=== PATIENT | female | born 1935 | race Asian ===

== ENCOUNTER 2018-11-24 04:29 | Emergency (ER) | payer MEDICARE, OTHER ==
[~2018-11-24] VITALS: Ht 154.9 cm; Wt 57.2 kg
--- NOTE | 2018-11-24 04:54 | PHYS DOC ---
Past History Past Medical History: Other Additional Past Medical Histor: gastic ulcer Past Surgical History: Appendectomy Smoking: Non-smoker Alcohol Use: None Drug Use: None Adult General HPI HPI Patient is a 83-year-old female presents with lower abdominal pain that started yesterday morning. Yesterday evening she noticed some bright red blood from her rectum. This has become worse over time. Describes the discomfort as crampy and twisting. Discomfort is moderate in intensity. No nausea or vomiting. No black tarry-looking stools. No skin bruising. No recent changes in medicines. She has been on any antiulcer medicine, long-standing, as well as an aspirin a day. She has taken no medicine help with the abdominal pain. She has a remote history of an appendectomy.[] Review of Systems Review of Systems Constitutional: Denies fever or chills [] Eyes: Denies change in visual acuity, redness, or eye pain [] HENT: Denies nasal congestion or sore throat [] Respiratory: Denies cough or shortness of breath [] Cardiovascular: No chest pain or palpitations[] GI: See history of present illness[] : Denies dysuria or hematuria [] Musculoskeletal: Denies back pain or joint pain [] Integument: Denies rash or skin lesions [] Neurologic: Denies headache, focal weakness or sensory changes [] Endocrine: Denies polyuria or polydipsia [] All other systems were reviewed and found to be within normal limits, except as documented in this note. Physical Exam Physical Exam Constitutional: Well developed, well nourished, no acute distress, non-toxic appearance. [] HENT: Normocephalic, atraumatic, bilateral external ears normal, oropharynx moist, no oral exudates, nose normal. [] Eyes: PERRLA, EOMI, conjunctiva normal, no discharge. [] Neck: Normal range of motion, no tenderness, supple, no stridor. [] Cardiovascular:Heart rate regular rhythm, no murmur [] Lungs & Thorax: Bilateral breath sounds clear to auscultation [] Abdomen: Bowel sounds normal, soft, lower abdominal tenderness, no rebound, no guarding, no rigidity, no masses, no pulsatile masses. Rectal exam performed with siding mechanic: No external hemorrhoids, no fissures, no gross blood on finger, no stool in the vault[] Skin: Warm, dry, no erythema, no rash. [] Back: No tenderness, no CVA tenderness. [] Extremities: No tenderness, no cyanosis, no clubbing, ROM intact, no edema. [] Neurologic: Alert and oriented X 3, normal motor function, normal sensory function, no focal deficits noted. [] Psychologic: Affect normal, judgement normal, mood normal. [] EKG EKG [] Radiology/Procedures Radiology/Procedures [] Course & Med Decision Making Course & Med Decision Making Pertinent Labs and Imaging studies reviewed. (See chart for details) ED course: Patient arrived, was placed in bed, and tolerated exam well. After rectal exam as noted above in the physical exam section, patient had a bowel movement that was mostly blood, collected and the hat, it had components or both bright red as well as what appeared to be clot. Discussion was made with the hospitalist here at [facility], due to not having a GI specialist or surgical capabilities, it was deemed not appropriate to admit the patient here at [facility] so consultation was made with the hospitalist service at [facility] The patient was graciously accepted by Dr. Odonnell. Patient care was endorsed to Dr. Carlin at 6 AM with imaging and laboratory studies pending.[] Dragon Disclaimer Dragon Disclaimer This electronic medical record was generated, in whole or in part, using a voice recognition dictation system. Departure Departure: Impression: Primary Impression: GI bleed Disposition: 05 TRANSFER OTHER Referrals: CED GRIFFIN MD (PCP) JORGE A MURRAY DO Nov 24, 2018 04:54
[2018-11-24] MEDS ORDERED: MORPHINE SULFATE 4 MG/ML DISP.SYRIN. IV ONE (05:15)
[2018-11-24] MEDS ORDERED: HYOSCYAMINE 0.125 MG TAB.RAPDIS PO ONE (05:15)
[2018-11-24] MEDS ORDERED: PANTOPRAZOLE IV 40 MG VIAL. IVP ONE (05:15)
[2018-11-24] MEDS ORDERED: CONTRAST GIVEN MC PRN (05:15)
[2018-11-24] MEDS ORDERED: IOHEXOL 300 MG/ML 75 ML VIAL. IV ONE (05:15)
[2018-11-24 05:27] LABS: BASO # 0.1 x10^3/uL (0.0-0.2); BASO % 1 % (0-3); EOS # 0.2 x10^3/uL (0.0-0.7); EOS % 2 % (0-3); LYMPH # 2.6 x10^3/uL (1.0-4.8); LYMPH % 27 % (24-48); MEAN CORPUSCULAR HEMOGLOBIN 32 pg (25-35); MEAN CORPUSCULAR HGB CONC 33 g/dL (31-37); MEAN CORPUSCULAR VOLUME 95 fL (79-100); MONO # 0.5 x10^3/uL (0.0-1.1); MONO % 5 % (0-9); NEUT # 6.2 x10^3uL (1.8-7.7); NEUT % 65 % (31-73); PLATELET COUNT 187 x10^3/uL (140-400); RED BLOOD COUNT 4.75 x10^6/uL (3.50-5.40); RED CELL DISTRIBUTION WIDTH 13.5 % (11.5-14.5); WHITE BLOOD COUNT 9.5 x10^3/uL (4.0-11.0)
[2018-11-24] MEDS ORDERED: ONDANSETRON PF 4 MG/2 ML VIAL. IV ONE (05:30)
[2018-11-24 05:40] LABS: ALBUMIN 3.7 g/dL (3.4-5.0); CALCIUM 9.5 mg/dL (8.5-10.1); CREATININE 0.8 mg/dL (0.6-1.0); GFR 68.8; POTASSIUM 3.6 mmol/L (3.5-5.1); TOTAL BILIRUBIN 0.6 mg/dL (0.2-1.0); TOTAL PROTEIN 7.5 g/dL (6.4-8.2)
[2018-11-24 05:43] LABS: BACTERIA,URINE 0 /HPF (0-FEW); BILIRUBIN,URINE NEG (NEG); CLARITY,URINE CLEAR; COLOR,URINE YELLOW; GLUCOSE,URINE NEG (NEG); NITRITE,URINE NEG (NEG); RBC,URINE 0 /HPF (0-2); SQUAMOUS EPITHELIAL CELL,UR OCC /LPF; UROBILINOGEN,URINE 0.2 mg/dL (0.2 mg/dL); WBC,URINE OCC /HPF (0-4)
[2018-11-24 06:08] LABS: FECAL OB PT POSITIVE (NEG)
--- NOTE | 2018-11-24 06:29 | RAD ---
CT scan of the abdomen and pelvis with contrast 11/24/2018 CLINICAL HISTORY: Rectal bleeding. Lower abdominal pain. TECHNIQUE: After the intravenous administration of 75 cc of Omnipaque 300 only, contiguous, 5 mm axial sections were obtained through the abdomen and pelvis. One or more of the following individualized dose reduction techniques were utilized for this study: 1. Automated exposure control. 2. Adjustment of the mA and/or kV according to patient size. 3. Use of iterative reconstruction technique. FINDINGS: Images through the lung bases demonstrate minimal dependent subsegmental atelectasis bilaterally. The liver parenchyma has a decreased attenuation consistent with fatty infiltration. Calcified granulomas are seen involving the right lobe of the liver. The spleen, pancreas, adrenal glands and left kidney are within normal limits. A 1 cm rounded low-attenuation lesion is seen involving the lower pole of the right kidney. This likely represents a cyst. The gallbladder is contracted. No free fluid or free air is seen within the abdomen. There is no evidence of bowel obstruction. A focal area of wall thickening is seen involving the descending colon. This measures 15 cm in length. It likely reflects a colitis. Mildly dilated fecalized small bowel loops are seen within the lower pelvis without definite evidence of bowel obstruction. Images through the pelvis demonstrate calcifications consistent with phleboliths. The urinary bladder is contracted. No free fluid is seen. Very mild S-shaped curvature of the thoracolumbar spine is noted. Degenerative changes are seen involving the lower thoracic and throughout the lumbar spine and both hips. IMPRESSION: Focal wall thickening is seen involving the descending colon which likely reflects a colitis. Electronically signed by: Amor Rich MD (11/24/2018 6:26 AM) [id number]
[2018-11-24 07:49] VITALS: BP 140/75
== END 2018-11-24 09:00 | disposition short-term general hospital (02) ==
LOC: ER 04:29
DX: K92.2 Gastrointestinal hemorrhage, unspecified (principal); Z90.89 Acquired absence of other organs
CPT/HCPCS: 36415; 74177; 80053; 81001; 82274; 85025; 85610; 85730; 96374; 96375; 99285; C9113; J2270; J2405; Q9967

== ENCOUNTER 2019-01-01 16:44 | Emergency (ER) | payer MEDICARE, OTHER ==
[~2019-01-01] VITALS: Ht 154.9 cm; Wt 57.2 kg
[2019-01-01 17:01] VITALS: BP 126/45
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
[2019-01-01] MEDS ORDERED: IBUPROFEN 400 MG TABLET. PO ONE (17:15)
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
[2019-01-01] MEDS ORDERED: MELO7.5T29 PO (17:36)
== END 2019-01-01 17:58 | disposition home or self-care (01) ==
LOC: ER 16:47
DX: M25.561 Pain in right knee (principal); G89.11 Acute pain due to trauma; Z88.0 Allergy status to penicillin; Z88.2 Allergy status to sulfonamides; W22.8XXA Striking against or struck by other objects, initial encounter; Y93.53 Activity, golf; Y92.89 Other specified places as the place of occurrence of the external cause; Y99.8 Other external cause status
CPT/HCPCS: 29505; 73562; 99284

== ENCOUNTER 2019-03-29 10:13 | Emergency (ER) | payer MEDICARE, OTHER ==
[~2019-03-29] VITALS: Ht 154.9 cm; Wt 56.7 kg
[~2019-03-29 10:13] MED LIST: MELO7.5T29 PO
--- NOTE | 2019-03-29 10:53 | RAD ---
Three-view right ankle HISTORY: Pain status post injury AP lateral oblique views The visualized osseous structures appear normal. There is mild swelling over the lateral malleolus. IMPRESSION: Mild swelling of the lateral malleolus could be secondary to ligamentous injury. There is no evidence of fracture or dislocation. Electronically signed by: Eddie Talley III, MD (03/29/2019 10:50 AM) [id number]
--- NOTE | 2019-03-29 11:13 | PHYS DOC ---
Past History Past Medical History: Other Additional Past Medical Histor: gastic ulcer Past Surgical History: Appendectomy Smoking: Non-smoker Alcohol Use: None Drug Use: None Adult General Chief Complaint Chief Complaint: ANKLE PROBLEM HPI HPI Patient is an 83-year-old female presents with a right ankle injury. She states she missed a step and inverted her ankle this morning. She's had quite a bit of swelling and pain especially with ambulation. She states she R Florentino has an injured right knee which has caused her to really protect the right side of her gait. She denies any other new injuries at this time.[] Review of Systems Review of Systems Constitutional: Denies fever or chills [] Eyes: Denies change in visual acuity, redness, or eye pain [] HENT: Denies nasal congestion or sore throat [] Respiratory: Denies cough or shortness of breath [] Cardiovascular: No additional information not addressed in HPI [] Musculoskeletal: Right ankle injury as described in history of present illness[] Integument: Denies rash or skin lesions [] Neurologic: Denies headache, focal weakness or sensory changes [] All other systems were reviewed and found to be within normal limits, except as documented in this note. Allergies Allergies Allergies Coded Allergies Type Severity Reaction Last Updated Verified Penicillins Allergy Unknown 11/24/18 Yes Sulfa (Sulfonamide Antibiotics) Allergy Unknown 11/24/18 Yes Physical Exam Physical Exam Constitutional: Well developed, well nourished, mild distress, non-toxic appearance. [] HENT: Normocephalic, atraumatic, bilateral external ears normal, oropharynx moist, no oral exudates, nose normal. [] Eyes: PERRLA, EOMI, conjunctiva normal, no discharge. [] Neck: Normal range of motion, no tenderness, supple, no stridor. [] Cardiovascular:Heart rate regular rhythm, no murmur [] Lungs & Thorax: Bilateral breath sounds clear to auscultation [] Abdomen: Bowel sounds normal, soft, no tenderness, no masses, no pulsatile masses. [] Skin: Warm, dry, no erythema, no rash. [] Back: No tenderness, no CVA tenderness. [] Extremities: Right ankle shows some swelling over the lateral malleolus no obvious deformity no ecchymosis. [] Neurologic: Alert and oriented X 3, normal motor function, normal sensory function, no focal deficits noted. [] Psychologic: Affect normal, judgement normal, mood normal. [] Current Patient Data Vital Signs Vital Signs Date Time Temp Pulse Resp B/P (MAP) Pulse Ox O2 Delivery O2 Flow Rate FiO2 03/29/19 10:15 63 18 96 Room Air 03/29/19 10:13 157/42 (80) EKG EKG [] Radiology/Procedures Radiology/Procedures [] Impressions: HISTORY: Pain status post injury AP lateral oblique views The visualized osseous structures appear normal. There is mild swelling over the lateral malleolus. IMPRESSION: Mild swelling of the lateral malleolus could be secondary to ligamentous injury. There is no evidence of fracture or dislocation. Course & Med Decision Making Course & Med Decision Making Pertinent Labs and Imaging studies reviewed. (See chart for details) [] Dragon Disclaimer Dragon Disclaimer This electronic medical record was generated, in whole or in part, using a voice recognition dictation system. Departure Departure: Impression: Primary Impression: Right ankle sprain Disposition: HOME, SELF-CARE Condition: STABLE Referrals: CED GRIFFIN MD (PCP) Patient Instructions: Ankle Sprain, Ankle Sprain, Acute, with Phase I Rehab- SportsMed, Ankle Sprain, Acute, with Phase II Rehab-SportsMed Additional Instructions: Return to the emergency department with any new or concerning symptoms. Take Tylenol or Motrin for discomfort. I sure ankle 20 minutes at a time 3-4 times daily for the next 3 days. Problem Qualifiers Primary Impression: Right ankle sprain Encounter type: initial encounter Involved ligament of ankle: unspecified ligament Qualified Codes: S93.401A - Sprain of unspecified ligament of right ankle, initial encounter WINTER RANDHAWA DO Mar 29, 2019 11:13
== END 2019-03-29 11:23 | disposition home or self-care (01) ==
LOC: ER 10:13
DX: S93.401A Sprain of unspecified ligament of right ankle, initial encounter (principal); Z88.0 Allergy status to penicillin; Z88.2 Allergy status to sulfonamides; X50.9XXA Other and unspecified overexertion or strenuous movements or postures, initial encounter; Y93.89 Activity, other specified; Y92.89 Other specified places as the place of occurrence of the external cause; Y99.8 Other external cause status
CPT/HCPCS: 73610; 99284

== ENCOUNTER 2020-06-03 12:39 | Emergency (ER) | payer MEDICARE, OTHER ==
[~2020-06-03] VITALS: Ht 154.9 cm; Wt 56.8 kg
--- NOTE | 2020-06-03 13:01 | PHYS DOC ---
Past History Past Medical History: GERD, Other Additional Past Medical Histor: gastic ulcer Past Surgical History: Appendectomy Smoking: Non-smoker Alcohol Use: None Drug Use: None Adult General Chief Complaint Chief Complaint: Neck Pain HPI HPI Patient is a 84-year-old female presents emergency department complaining of waking up with left neck pain 2 weeks ago. Patient denies recent trauma to her neck. Patient states she was treating with ibuprofen and Tylenol daily. Patient states she golfs every day or as much as she can. Patient states that her pain has slowly increased and has radiated down to her left shoulder and left shoulder blade area. Patient states that this morning she noticed that she was having some pain on the left side of her chest when she moves. Patient states that she is very still she does not have any pain, however if she moves her shoulder or neck to the left or right her pain increases to a 10/10 on a 1- 10 pain scale. Patient states she had a C3-C4 fusion approximately [address] [facility] by Dr. Bunch. Patient denies any other surgeries. Patient denies taking any home prescription medications. Patient states she is allergic to sulfa and penicillins. Patient denies shortness of breath, chest palpitations, diaphoretic episodes. Patient denies nausea vomiting or diarrhea. Patient denies any recent illnesses. Patient denies any other physical concerns or physical complaints. Patient states that she has received steroid injections in the past for similar aches and pains. Patient denies cigarette smoking history, denies drinking alcohol, denies illicit drug use. Review of Systems Review of Systems 14 body systems of review of systems have been reviewed. See HPI for pertinent positives and negative responses, otherwise all other systems are negative, nonpertinent or noncontributory. Allergies Allergies Allergies Coded Allergies Type Severity Reaction Last Updated Verified Penicillins Allergy Unknown 11/24/18 Yes Sulfa (Sulfonamide Antibiotics) Allergy Unknown 11/24/18 Yes Physical Exam Physical Exam Constitutional: Well developed, well nourished, no acute distress, non-toxic appearance. [] HENT: Normocephalic, atraumatic, bilateral external ears normal, oropharynx moist, no oral exudates, nose normal. [] Eyes: PERRLA, EOMI, conjunctiva normal, no discharge. [] Neck: Limited range of motion related to left-sided neck pain and stiffness, tenderness to palpation along the musculature of left side neck, midline spine tenderness to palpation, no crepitus appreciated, no swelling, no ecchymotic areas appreciated, supple, no stridor. No nuchal rigidity. Cardiovascular:Heart rate regular rhythm, no murmur heart sounds S1-S2 auscultation. Lungs & Thorax: Bilateral breath sounds clear to auscultation all lung tyson. Pain to palpation along the left scapular area and left pectoralis muscle. Abdomen: Bowel sounds normal, soft, no tenderness, no masses, no pulsatile masses. [] Skin: Warm, dry, no erythema, no rash. [] Back: No tenderness, no CVA tenderness. [] Extremities: No tenderness, no cyanosis, no clubbing, ROM intact, no edema. Except for left deltoid, pain elicited with passive range of motion to left deltoid, pain with palpation to left deltoid, no crepitus appreciated, no swelling of the left upper extremity, distal cap refill less than 2 seconds, 2+ radial pulse Neurologic: Alert and oriented X 3, normal motor function, normal sensory function, no focal deficits noted. [] Psychologic: Affect normal, judgement normal, mood normal. [] Current Patient Data Vital Signs Vital Signs Date Time Temp Pulse Resp B/P (MAP) Pulse Ox O2 Delivery O2 Flow Rate FiO2 06/03/20 12:45 97.8 77 16 185/89 (121) 97 Room Air Lab Results Laboratory Tests Test 06/03/20 13:30 Troponin I Quantitative < 0.017 ng/mL Current Medications Medications (Trade) Dose Ordered Sig/Tiffanie Route PRN Reason Start Time Stop Time Status Last Admin Dose Admin Ondansetron HCl (Zofran Odt) 4 mg 1X ONCE PO 06/03/20 13:15 06/03/20 13:16 DC 06/03/20 13:25 Ketorolac Tromethamine (Toradol 30mg Vial) 30 mg 1X ONCE IM 06/03/20 13:15 06/03/20 13:16 DC 06/03/20 13:26 Methylprednisolone Acetate (DEPO-Medrol IM) 80 mg 1X ONCE IM 06/03/20 13:15 06/03/20 13:16 DC 06/03/20 13:26 EKG EKG EKG performed at 1310 by house respiratory therapy staff shows a normal sinus rhythm without ectopy, heart rate of 80 bpm, NE interval 0.148, QTc interval 0.426, no acute STEMI, no ACS, no acute ischemia appreciated, EKG interpreted by ED attending Dr. Mcgee. Radiology/Procedures Radiology/Procedures SEX: F EXAM STATUS: REG ER ORD. PHYSICIAN: DOE MODI APRN REASON: CHEST PAIN PROCEDURE: CHEST PA & LATERAL INDICATION: Reason: CHEST PAIN / Spl. Instructions: / History: COMPARISON: None. FINDINGS: 2 view of chest obtained. Mild scoliotic curvature of the spine. Cardiac silhouette is unremarkable. Mild linear opacity left lung base. Degenerative changes of spine. IMPRESSION: * Linear opacity left lung base likely from atelectasis. Electronically signed by: Jigna Sweet MD (06/03/2020 1:33 PM) [id number] DICTATED AND SIGNED BY: JIGNA SWEET MD DATE: 06/03/20 1332 CC: DOE MODI APRN; ZELALEM MCGEE MD; CED GRIFFIN MD ~MTH0 0 REASON: CERVICAL SPINE PAIN WITH C3-C4 FUSION HX PROCEDURE: CT CERVICAL SPINE WO CONTRAST CT CERVICAL SPINE WO History:Reason: CERVICAL SPINE PAIN WITH C3-C4 FUSION HX / Spl. Instructions: / History: Technique: Noncontrast CT imaging was performed of the cervical spine. Multiplanar images are reviewed. Exposure: One or more of the following individualized dose reduction techniques were utilized for this examination: 1. Automated exposure control 2. Adjustment of the mA and/or kV according to patient size 3. Use of iterative reconstruction technique. Comparison: None Findings: Anterior stabilization and interbody fusion C3-C4. Intervertebral and vertebral fusion as well as corporative. Normal vertebral body height. No fracture. Mild degenerative disc changes most prominent C4-C5 and C5-C6. Mild neuroforaminal narrowing C4-C5. Mild canal narrowing C4-C5. No high-grade canal stenosis. Soft tissues unremarkable. Impression: 1. No acute fracture or subluxation of the cervical spine. 2. Anterior stabilization and interbody fusion C3-C4. 3. Mild multilevel cervical spondylosis most prominent C4-C5. Electronically signed by: Madan Coy DO (06/03/2020 1:55 PM) [id number] DICTATED AND SIGNED BY: MADAN COY DO DATE: 06/03/20 1349 CC: DOE MODI APRN; ZELALEM MCGEE MD; CED GRIFFIN MD ~MTH0 0 Heart Score HEART Score for Chest Pain: HEART Score for Chest Pain Response (Comments) Value History Slighlty/Non-Suspicious 0 ECG Normal 0 Age > 65 2 Risk Factors No Risk Factors 0 Troponin < Normal Limit 0 Total 2 Risk Factors: Risk Factors: DM, Current or recent (<one month) smoker, HTN, HLP, family history of CAD, obesity. Risk Scores: Risk Factors: DM, Current or recent (<one month) smoker, HTN, HLP, family history of CAD, obesity. Course & Med Decision Making Course & Med Decision Making Pertinent Labs and Imaging studies reviewed. (See chart for details) 84-year-old female, vital signs reviewed, presents emergency department with a slow onset of neck pain that radiates to her scapular area left shoulder area and left anterior chest wall. Patient has a healthy highly active female who continued to golf through her neck pain. This most likely exacerbated the radiation of pain from her neck to her scapular shoulder and anterior chest wall area. Patient was treating her pain intermittently with [id number] Tylenol and Motrin at at home and only getting minor relief. In ER work-up consisted of troponin I, EKG, chest x-ray, CT C-spine. 30 mg Toradol IM, 80 mg Depo-Medrol IM. Patient's troponin I was unremarkable, EKG was unremarkable, chest x-ray showed linear atelectasis at the left base most likely related to patient's decreased breathing related to her musculoskeletal chest pain. CT neck showed her surgical history of C3-C4 fusion, along with degenerative changes. The patient is nontoxic in appearance. Patient states she has appointment with her primary care doctor this Saturday. Discharge plan to include 15 mg meloxicam daily for 1 week, have patient keep appointment with her primary care physician on Saturday to evaluate pain medication regimen, reevaluation of checks x-ray related to ra diologist interpretation of atelectasis, rest and refrain from strenuous physical activity until released by your primary care physician. Patient gave verbal understanding of discharge home instructions, return to ER precautions or concerns, follow-up with PCP, discharged home without incident. Dragon Disclaimer Dragon Disclaimer This electronic medical record was generated, in whole or in part, using a voice recognition dictation system. Departure Departure: Impression: Primary Impression: Neck muscle strain Additional Impressions: Muscle strain of scapular region Shoulder strain Chest wall pain Abnormal chest x-ray Disposition: 01 DC HOME SELF CARE/HOMELESS Condition: GOOD Referrals: CED GRIFFIN MD (PCP) Patient Instructions: Muscle Cramps, [id number] Additional Instructions: Take medications as prescribed, keep your appointment with your primary care doctor this Saturday and let her know of your new medication so that she may determine if you need to change or not. Return to the emergency department for worsening symptoms or other concerns. Please let your doctor know we did a troponinI test that was negative, and EKG that was nonconcerning, a CT of the neck and chest x-ray. Your doctor will determine if you need a repeat chest x-ray. EMERGENCY DEPARTMENT GENERAL DISCHARGE INSTRUCTIONS Thank you for coming to [facility] (ED) today and trusting us with you care. We trust that you had a positivie experience in our Emergency Department. If you wish to speak to the department management, you may call the director at [phone]. YOUR FOLLOW UP INSTRUCTIONS ARE FOLLOWS: 1. Do you have a private Doctor? If you do not have a private doctor, please ask for a resource list of physicians or clinics that may be able to assist you with follow up care. 2. The Emergency Physician has interpreted your x-rays. The X-Ray specialist will also review them. If there is a change in the findings, you will be notified in 48 hours when at all possible. 3. A lab test or culture has been done, your results will be reviewed and you will be notified if you need a change in treatment. ADDITIONAL INSTRUCTIONS AND INFORMATION: 1. Your care today has been supervised by a physician who is specially trained in emergency care. Many problems require more than one evaluation for a complete diagnosis and treatment. We recommend that you schedule your follow up appointment as recommended to ensure complete treatment of you illness or injury. If you are unable to obtain follow up care and continue to have a problem, or if your condition worsens, we recommend that you return to the ED. 2. We are not able to safely determine your condition over the phone nor are we able to give sound medical advice over the phone. For these safety reasons, if you call for medical advice we will ask you to come to the ED for further evaluation. 3. If you have any questions regarding these discharge instructions please call the ED at [phone]. SAFETY INFORMATION: In the interest of safety, wellness, and injury prevention; we encourage you to wear your sealbelt, if you smoke; quite smoking, and we encourage family to use a pro tective helmet for bicycling and other sporting events that present an increased risk for head injury. IF YOUR SYMPTOMS WORSEN OR NEW SYMPTOMS DEVELOP, OR YOU HAVE CONCERNS ABOUT YOUR CONDITION; OR IF YOUR CONDITION WORSENS WHILE YOU ARE WAITING FOR YOUR FOLLOW UP APPOINTMENT; EITHER CONTACT YOUR PRIMARY CARE DOCTOR, THE PHYSICIAN WHOSE NAME AND NUMBER YOU WERE GIVEN, OR RETURN TO THE ED IMMEDIATELY. Scripts Meloxicam (MELOXICAM) 15 Mg Tablet 15 MG PO DAILY for MUSCLE PAINS, #7 TAB 0 Refills Prov: DOE MODI APRN 06/03/20 Problem Qualifiers Primary Impression: Neck muscle strain Encounter type: initial encounter Qualified Codes: S16.1XXA - Strain of muscle, fascia and tendon at neck level, initial encounter Additional Impressions: Muscle strain of scapular region Encounter type: initial encounter Laterality: left Qualified Codes: S46.912A - Strain of unspecified muscle, fascia and tendon at shoulder and upper arm level, left arm, initial encounter Shoulder strain Encounter type: initial encounter Laterality: left Qualified Codes: S46.912A - Strain of unspecified muscle, fascia and tendon at shoulder and upper arm level, left arm, initial encounter DOE MODI APRN Jun 03, 2020 13:01
[2020-06-03] MEDS ORDERED: ONDANSETRON ODT 4 MG TAB.RAPDIS PO ONE (13:15)
[2020-06-03] MEDS ORDERED: KETOROLAC 30 MG/ML VIAL. IM ONE (13:15)
[2020-06-03] MEDS ORDERED: methylPREDNISolone ACETATE 80 MG/ML VIAL. IM ONE (13:15)
--- NOTE | 2020-06-03 13:35 | RAD ---
INDICATION: Reason: CHEST PAIN / Spl. Instructions: / History: COMPARISON: None. FINDINGS: 2 view of chest obtained. Mild scoliotic curvature of the spine. Cardiac silhouette is unremarkable. Mild linear opacity left lung base. Degenerative changes of spine. IMPRESSION: * Linear opacity left lung base likely from atelectasis. Electronically signed by: Troy Sweet MD (06/03/2020 1:33 PM) [id number]
--- NOTE | 2020-06-03 13:57 | RAD ---
CT CERVICAL SPINE WO History:Reason: CERVICAL SPINE PAIN WITH C3-C4 FUSION HX / Spl. Instructions: / History: Technique: Noncontrast CT imaging was performed of the cervical spine. Multiplanar images are reviewe d. Exposure: One or more of the following individualized dose reduction techniques were utilized for thi s examination: 1. Automated exposure control 2. Adjustment of the mA and/or kV according to patient size 3. Use of iterative reconstruction technique. Comparison: None Findings: Anterior stabilization and interbody fusion C3-C4. Intervertebral and vertebral fusion as well as cor porative. Normal vertebral body height. No fracture. Mild degenerative disc changes most prominent C4-C5 and C5-C6. Mild neuroforaminal narrowing C4-C5. M ild canal narrowing C4-C5. No high-grade canal stenosis. Soft tissues unremarkable. Impression: 1. No acute fracture or subluxation of the cervical spine. 2. Anterior stabilization and interbody fusion C3-C4. 3. Mild multilevel cervical spondylosis most prominent C4-C5. Electronically signed by: Madan Curran DO (06/03/2020 1:55 PM) [id number]
--- NOTE | 2020-06-03 14:08 | EKG ---
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
[2020-06-03] MEDS ORDERED: MELO15TA23 PO ×2 (14:19→14:28)
[2020-06-03 14:35] VITALS: BP 165/78
== END 2020-06-03 14:36 | disposition home or self-care (01) ==
LOC: ER 12:39
DX: S16.1XXA Strain of muscle, fascia and tendon at neck level, initial encounter (principal); S46.912A Strain of unspecified muscle, fascia and tendon at shoulder and upper arm level, left arm, initial encounter; R93.1 Abnormal findings on diagnostic imaging of heart and coronary circulation; R07.89 Other chest pain; K21.9 Gastro-esophageal reflux disease without esophagitis; Z88.0 Allergy status to penicillin; Z88.2 Allergy status to sulfonamides; X58.XXXA Exposure to other specified factors, initial encounter; Y93.89 Activity, other specified; Y92.89 Other specified places as the place of occurrence of the external cause; Y99.8 Other external cause status
CPT/HCPCS: 36415; 71046; 72125; 84484; 93005; 96372; 99285; J1040; J1885; Q0162

== ENCOUNTER 2020-08-24 07:28 | Emergency (ER) | payer MEDICARE, OTHER ==
[~2020-08-24] VITALS: Ht 154.9 cm; Wt 63.2 kg
[~2020-08-24 07:28] MED LIST changes: +MELO15TA23 PO
[2020-08-24] MEDS ORDERED: IOHEXOL 240 MG/ML 50ML VIAL. ONE (08:04)
[2020-08-24] MEDS ORDERED: IOHEXOL 240 MG/ML 50ML VIAL. PO ONE (08:15)
[2020-08-24] MEDS ORDERED: IOHEXOL 300 MG/ML 75 ML VIAL. IV ONE (08:15)
[2020-08-24 08:16] LABS: BASO % 1 % (0-3); EOS # 0.1 x10^3/uL (0.0-0.7); EOS % 2 % (0-3); HEMATOCRIT 43.8 % (36.0-47.0); HEMOGLOBIN 14.7 g/dL (12.0-15.5); LYMPH # 2.6 x10^3/uL (1.0-4.8); LYMPH % 41 % (24-48); MEAN CORPUSCULAR HEMOGLOBIN 33 pg (25-35); MEAN CORPUSCULAR HGB CONC 34 g/dL (31-37); MEAN CORPUSCULAR VOLUME 98 fL (79-100); MONO # 0.4 x10^3/uL (0.0-1.1); MONO % 7 % (0-9); NEUT # 3.2 x10^3uL (1.8-7.7); NEUT % 50 % (31-73); PLATELET COUNT 187 x10^3/uL (140-400); RED BLOOD COUNT 4.45 x10^6/uL (3.50-5.40); RED CELL DISTRIBUTION WIDTH 13.7 % (11.5-14.5); WHITE BLOOD COUNT 6.4 x10^3/uL (4.0-11.0)
[2020-08-24 08:22] LABS: CALCIUM 9.1 mg/dL (8.5-10.1); CREATININE 0.7 mg/dL (0.6-1.0); GFR 80.1; POTASSIUM 4.2 mmol/L (3.5-5.1)
[2020-08-24 08:29] LABS: ALBUMIN 3.7 g/dL (3.4-5.0); TOTAL BILIRUBIN 0.4 mg/dL (0.2-1.0); TOTAL PROTEIN 7.3 g/dL (6.4-8.2)
[2020-08-24] MEDS ORDERED: CONTRAST GIVEN. MC PRN (08:30)
[2020-08-24 09:37] LABS: BILIRUBIN,URINE NEG (NEG); CLARITY,URINE CLEAR; COLOR,URINE STRAW; GLUCOSE,URINE NEG (NEG)
[2020-08-24 09:38] LABS: BACTERIA,URINE 0 /HPF (0-FEW); NITRITE,URINE NEG (NEG); RBC,URINE 0 /HPF (0-2); UROBILINOGEN,URINE 0.2 mg/dL (0.2 mg/dL); WBC,URINE 0 /HPF (0-4)
--- NOTE | 2020-08-24 10:05 | RAD ---
Exam: CT abdomen/pelvis with intravenous contrast Indication: Abdominal pain, cramping, bleeding Comparison: CT abdomen pelvis 11/24/2018 Technique: Helical CT imaging performed of the abdomen and pelvis after the intravenous administratio n of intravenous contrast. Sagittal and coronal reformats were obtained. One or more of the following individualized dose reduction techniques were utilized for this examinat ion: 1. Automated exposure control 2. Adjustment of the mA and/or kV according to patient size 3. Use of iterative reconstruction technique. Findings: Lower chest: Unremarkable. Liver: The liver is normal in size. No focal lesions. There are a few coarse calcifications in the ri ght hepatic lobe. Gallbladder/Biliary Tree: Normal. Pancreas: Normal. Spleen: Normal. Adrenal Glands: Normal. Kidneys/Ureters/Bladder: Kidneys are normal size and enhance symmetrically. There is a 1.8 cm simple cyst in the inferior right renal pole. No hydronephrosis. Ureters and bladder are normal. Reproductive Organs: Uterus is surgically absent. Left ovary is an prominent for patient's age. Stomach, small bowel, and colon: Small hiatal hernia. No small bowel obstruction. There are sigmoid d iverticulosis without acute diverticulitis. Vasculature: No aortic aneurysm. Mild calcified atherosclerosis Lymph Nodes: No lymphadenopathy. Peritoneum and retroperitoneum: No free fluid or free air. Bones: No acute osseous abnormality. There is minimal retrolisthesis of L3 on L4, unchanged. Impression: 1. No acute abnormality the abdomen or pelvis. 2. The left ovary is prominent appearance for age. Correlation could be made with pelvic ultrasound as clinically indicated. 3. Sigmoid diverticulosis. 4. Small hiatal hernia. Electronically signed by: Freida Graves MD (08/24/2020 10:02 AM) [id number]
[2020-08-24 10:08] VITALS: BP 141/70
[2020-08-24] MEDS ORDERED: AMOX1TAB58 PO (10:56)
--- NOTE | 2020-08-24 10:57 | PHYS DOC ---
Past History Past Medical History: GERD, Other Additional Past Medical Histor: gastic ulcer Past Surgical History: Appendectomy Smoking: Non-smoker Alcohol Use: None Drug Use: None Adult General Chief Complaint Chief Complaint: BLOODY STOOL HPI HPI Patient is an 84-year-old female who presents to the emergency room complaining of some lower abdominal pain and bloody stools. She states that she had a small episode of bloody stools yesterday and then had an episode of bloody stools this morning. She states there is a lot more blood this morning. She has had some mild lower abdominal cramping. She denies any nausea, vomiting, fever, chills, sweats, chest pain, shortness of breath, lightheadedness, dizziness, syncope. She had something similar to this several years ago but is unsure at that time what caused the symptoms. She did have a work-up done but states that it got better on its own without treatment. Review of Systems Review of Systems Complete ROS is negative unless otherwise documented in HPI Current Medications Current Medications Current Medications Medications (Trade) Dose Ordered Sig/Tiffanie Start Time Stop Time Status Last Admin Dose Admin Info (Do NOT chart on this entry -- for MONITORING) 1 each PRN DAILY PRN 08/24/20 08:30 08/26/20 08:29 Iohexol (Omnipaque 240 Mg/ml) 50 ml 1X ONCE 08/24/20 08:15 08/24/20 08:18 DC 08/24/20 09:07 50 ML Iohexol (Omnipaque 300 Mg/ml) 75 ml 1X ONCE 08/24/20 08:15 08/24/20 08:18 DC 08/24/20 09:07 75 ML Allergies Allergies Allergies Coded Allergies Type Severity Reaction Last Updated Verified Penicillins Allergy Unknown 11/24/18 Yes Sulfa (Sulfonamide Antibiotics) Allergy Unknown 11/24/18 Yes Physical Exam Physical Exam General: Awake, alert, NAD. Well Nourished, well hydrated. Cooperative HEENT: Atraumatic, EOMI, PERRL, airway patent, moist oral mucosa Neck: Supple, trachea midline Respiratory: CTA bilaterally, normal effort, no wheezing/crackles CV: RRR, no murmur, cap refill <2 GI: Soft, nondistended, nontender, no masses MSK: No obvious deformities Skin: Warm, dry, intact Neuro: A&O x3, speech NL, sensory and motor grossly intact, no focal deficits Psych: Normal affect, normal mood, not suicidal or homicidal Current Patient Data Vital Signs Vital Signs Date Time Temp Pulse Resp B/P (MAP) Pulse Ox O2 Delivery O2 Flow Rate FiO2 08/24/20 10:08 68 16 141/70 (93) 97 Room Air 08/24/20 07:35 97.7 Lab Results Laboratory Tests Test 08/24/20 07:57 08/24/20 08:44 White Blood Count 6.4 x10^3/uL (4.0-11.0) Red Blood Count 4.45 x10^6/uL (3.50-5.40) Hemoglobin 14.7 g/dL (12.0-15.5) Hematocrit 43.8 % (36.0-47.0) Mean Corpuscular Volume 98 fL (79-100) Mean Corpuscular Hemoglobin 33 pg (25-35) Mean Corpuscular Hemoglobin Concent 34 g/dL (31-37) Red Cell Distribution Width 13.7 % (11.5-14.5) Platelet Count 187 x10^3/uL (140-400) Neutrophils (%) (Auto) 50 % (31-73) Lymphocytes (%) (Auto) 41 % (24-48) Monocytes (%) (Auto) 7 % (0-9) Eosinophils (%) (Auto) 2 % (0-3) Basophils (%) (Auto) 1 % (0-3) Neutrophils # (Auto) 3.2 x10^3uL (1.8-7.7) Lymphocytes # (Auto) 2.6 x10^3/uL (1.0-4.8) Monocytes # (Auto) 0.4 x10^3/uL (0.0-1.1) Eosinophils # (Auto) 0.1 x10^3/uL (0.0-0.7) Basophils # (Auto) 0.0 x10^3/uL (0.0-0.2) Sodium Level 143 mmol/L (136-145) Potassium Level 4.2 mmol/L (3.5-5.1) Chloride Level 108 mmol/L (98-107) H Carbon Dioxide Level 24 mmol/L (21-32) Anion Gap 11 (6-14) Blood Urea Nitrogen 19 mg/dL (7-20) Creatinine 0.7 mg/dL (0.6-1.0) Estimated GFR (Cockcroft-Gault) 80.1 BUN/Creatinine Ratio 27 (6-20) H Glucose Level 146 mg/dL (70-99) H Calcium Level 9.1 mg/dL (8.5-10.1) Total Bilirubin 0.4 mg/dL (0.2-1.0) Aspartate Amino Transferase (AST) 21 U/L (15-37) Alanine Aminotransferase (ALT) 32 U/L (14-59) Alkaline Phosphatase 56 U/L (46-116) Total Protein 7.3 g/dL (6.4-8.2) Albumin 3.7 g/dL (3.4-5.0) Albumin/Globulin Ratio 1.0 (1.0-1.7) Urine Collection Type Unknown Urine Color Straw Urine Clarity Clear Urine pH 6.0 Urine Specific [place] 1.020 Urine Protein Neg (NEG-TRACE) Urine Glucose (UA) Neg mg/dL (NEG) Urine Ketones (Stick) Neg mg/dL (NEG) Urine Blood Neg (NEG) Urine Nitrite Neg (NEG) Urine Bilirubin Neg (NEG) Urine Urobilinogen Dipstick 0.2 mg/dL (0.2 mg/dL) Urine Leukocyte Esterase Neg (NEG) Urine RBC 0 /HPF (0-2) Urine WBC 0 /HPF (0-4) Urine Bacteria 0 /HPF (0-FEW) EKG EKG [] Radiology/Procedures Radiology/Procedures [] Heart Score C/O Chest Pain: N/A Risk Factors: Risk Factors: DM, Current or recent (<one month) smoker, HTN, HLP, family history of CAD, obesity. Risk Scores: Risk Factors: DM, Current or recent (<one month) smoker, HTN, HLP, family history of CAD, obesity. Course & Med Decision Making Course & Med Decision Making Pertinent Labs and Imaging studies reviewed. (See chart for details) Patient is a 84 year-old female with a history of gastric ulcer who presents to the Emergency Room complaining of abdominal pain and rectal bleeding. On exam, patient is well-appearing with normal vitals. She is no signs of tachycardia or hypotension. Due to patients history, age, and exam work up will need to be d one to evaluate for intra-abdominal pathology. Work up ordered includes CBC, CMP, lipase, UA, CT abdomen and pelvis. Patient's pain does not epigastric and a cardiac evaluation does not be needed for atypical pain. Ddx includes colitis, diverticulitis, upper GI bleed, hemorrhoids, infectious diarrhea. Work up was reviewed and CT is unremarkable. Patient has a normal hemoglobin. Her vitals remained stable. She is overall well-appearing. I did offer her admission at [place] for GI evaluation. At this time patient would like to try to go home and come back if symptoms do not improve. She will be placed on Augmentin for possible infectious diarrhea. Patient's test results and vitals while in the ED were fully reviewed and discussed with the patient. Patient is stable and at this time does not need admission to the hospital. We have discussed strict return precautions and the importance of following up with their Primary Care Physician. Patient stated understanding and was given an opportunity to ask any questions. Patient is in agreement with plan. Dragon Disclaimer Dragon Disclaimer This electronic medical record was generated, in whole or in part, using a voice recognition dictation system. Departure Departure: Impression: Primary Impression: Rectal bleeding Additional Impression: Infectious diarrhea Disposition: HOME / SELF CARE / HOMELESS Condition: STABLE Referrals: JARROD BRODERICK MD (PCP) Patient Instructions: Rectal Bleeding Scripts Amoxicillin/Potassium Clav (AUGMENTIN 500-125 TABLET) 1 Each Tablet 1 TAB PO BID for colitis for 7 Days, #14 TAB 0 Refills Prov: ZELALEM SPENCER MD 08/24/20 Problem Qualifiers ZELALEM SPENCER MD Aug 24, 2020 10:57
== END 2020-08-24 11:02 | disposition home or self-care (01) ==
LOC: ER 07:28
DX: K62.5 Hemorrhage of anus and rectum (principal); A09 Infectious gastroenteritis and colitis, unspecified; K21.9 Gastro-esophageal reflux disease without esophagitis; Z90.89 Acquired absence of other organs; Z88.0 Allergy status to penicillin; Z88.2 Allergy status to sulfonamides
CPT/HCPCS: 36415; 74177; 80053; 81001; 85025; 99285; Q9966; Q9967

== ENCOUNTER 2021-06-08 15:59 | Emergency (ER) | payer MEDICARE, OTHER ==
[~2021-06-08] VITALS: Ht 154.9 cm; Wt 63.2 kg
[~2021-06-08 15:59] MED LIST changes: +AMOX1TAB58 PO
--- NOTE | 2021-06-08 18:06 | RAD ---
STUDY: CT head without contrast INDICATION: Right upper and lower extremity weakness. COMPARISON: None. TECHNIQUE: Axial CT imaging through the head without the use of intravenous contrast. Sagittal and co camryn reformats were obtained. One or more of the following individualized dose reduction techniques were utilized for this examinat ion: 1. Automated exposure control 2. Adjustment of the mA and/or kV according to patient size 3. Use of iterative reconstruction technique. FINDINGS: No acute intracranial hemorrhage. Senescent mineralization seen along both globus pallidi and faintly involving the dentate nuclei. No localized mass effect, midline shift or hydrocephalus. Odonnell-white m atter differentiation is maintained. White matter findings often seen with chronic microvascular isch emic change and there may be a small right caudate head call center specialist infarct which appears to be chroni c but is not fully characterized by CT. Relatively mild carotid siphon calcific atherosclerosis. Parenchymal volume loss but not atypical for patient age. Unremarkable calvarium. Normally aerated mastoid air cells and partially imaged paranasal sinuses. IMPRESSION: No acute intracranial abnormality by CT. If there is concern for a recent ischemic event MRI would be more sensitive. Electronically signed by: YARELY GAONA MD (06/08/2021 6:04 PM) [facility]
--- NOTE | 2021-06-08 18:31 | RAD ---
XR CHEST 1V History: Reason: Extremity weakness / Spl. Instructions: / History: Comparison: June 03, 2020 Findings: No consolidation or pleural effusion. Normal heart size. No pneumothorax. Impression: 1. No acute cardiopulmonary process. Electronically signed by: Madan Curran DO (06/08/2021 6:29 PM) [facility]
--- NOTE | 2021-06-08 18:45 | PHYS DOC ---
Past History Past Medical History: GERD, Other Additional Past Medical Histor: gastic ulcer (DOE MODI APRN) Past Surgical History: No Surgical History, Appendectomy Additional Past Surgical Histo: C3 C4 fusion (DOE MODI APRN) Smoking: Non-smoker Alcohol Use: None Drug Use: None (DOE MODI APRN) Adult General Chief Complaint Chief Complaint: WEAKNESS/GENERALIZED HPI HPI Patient is a 85-year-old female presents to the emergency department concerning right upper and lower extremity weakness since 6:00 this morning. Patient reports she woke up at 6:00 this morning and was stumbling around noticing she could not feel her right leg and her right arm felt numb, patient reports she went to the bathroom and went right back to bed. Patient reports she woke up 2 hours later with same symptoms, decided this evening to come into the emergency department for evaluation of her upper and lower extremity weakness and numbness. Patient reports she did have a headache last night before she went to bed that she treated with Excedrin migraine medication, has not had a headache today. Patient denies visual changes or visual disturbances, denies syncopal or near syncopal episodes, denies dizziness, denies chest pains, chest palpitations, nasal or chest congestion. Patient denies increased urination are hematuria or other dysuria, denies nausea, vomiting, diarrhea. Denies other physical complaints or physical concerns. (DOE MODI APRN) Review of Systems Review of Systems 14 body systems of review of systems have been reviewed. See HPI for pertinent positives and negative responses, otherwise all other systems are negative, nonpertinent or noncontributory. Constitutional: Negative except as outlined in HPI above. Skin: Negative except as outlined in HPI above. Eyes: Negative except as outlined in HPI above. HENT: Negative except as outlined in HPI above. Respiratory: Negative except as outlined in HPI above. Cardiovascular: Negative except as outlined in HPI above. GI: Negative except as outlined in HPI above. : Negative except as outlined in HPI above. Musculoskeletal: Negative except as outlined in HPI above. Integument: Negative except as outlined in HPI above. Neurologic: Negative except as outlined in HPI above. Endocrine: Negative except as outlined in HPI above. Lymphatic: Negative except as outlined in HPI above. Psychiatric: Negative except as outlined in HPI above. (DOE MODI APRN) Current Medications Current Medications Patient reports current home medications as atorvastatin 40 mg daily, vitamin B complex daily, Benadryl 25 mg 3 times daily, fish oil supplement, cranberry s upplement, gabapentin 100 mg 3 times daily, hydrocortisone ointment topically 3 times daily, latanoprost 0.005% ophthalmic solution each eyes., Lisinopril 10 mg p.o. daily, meloxicam 15 mg daily, Metformin 500 mg nightly, Os-Howard 500+ D3 daily, Protonix 40 mg daily, Restasis 0.05% ophthalmic emulsion 1 drop each eye daily. (DOE MODI APRN) Allergies Allergies Allergies Coded Allergies Type Severity Reaction Last Updated Verified Penicillins Allergy Unknown 11/24/18 Yes Sulfa (Sulfonamide Antibiotics) Allergy Unknown 11/24/18 Yes (DOE MODI APRN) Physical Exam Physical Exam Constitutional: Well developed, well nourished, no acute distress, non-toxic appearance. 85-year-old female in no apparent distress. HENT: Normocephalic, atraumatic. Patient speaking in normal voice tones, no slurring of speech appreciated. Eyes: Conjunctiva normal, no discharge. Satisfactory 6 cardinal eye movements. Neck: Normal range of motion, no stridor. No neck pain, no nuchal rigidity. Cardiovascular: No cyanosis appreciated, distal cap refill less than 2 seconds. Lungs & Thorax: Patient is in no respiratory distress, no audible adventitious lung sounds appreciated. Abdomen: Nontender, no abnormalities noted. Skin: Warm, dry, no erythema, no rash. Back: No tenderness, no deformities. Extremities: No tenderness, no cyanosis, no clubbing, ROM intact, no edema. Distal cap refill less than 2 seconds all extremities. +2/4 pulses. Neurologic: Alert and oriented X 3, normal motor function, normal sensory f unction, no focal deficits noted. Except for left upper and left lower extremity, see NIHSS stroke scale Psychologic: Affect normal, judgement normal, mood normal. (DOE MODI APRN) Current Patient Data Vital Signs Vital Signs Date Time Temp Pulse Resp B/P (MAP) Pulse Ox O2 Delivery O2 Flow Rate FiO2 06/08/21 17:28 64 18 141/63 (89) 98 Room Air Lab Results Laboratory Tests Test 06/08/21 17:58 White Blood Count 8.3 x10^3/uL Red Blood Count 4.21 x10^6/uL Hemoglobin 13.9 g/dL Hematocrit 40.7 % Mean Corpuscular Volume 97 fL Mean Corpuscular Hemoglobin 33 pg Mean Corpuscular Hemoglobin Concent 34 g/dL Red Cell Distribution Width 13.0 % Platelet Count 172 x10^3/uL Neutrophils (%) (Auto) 49 % Lymphocytes (%) (Auto) 41 % Monocytes (%) (Auto) 6 % Eosinophils (%) (Auto) 3 % Basophils (%) (Auto) 1 % Neutrophils # (Auto) 4.0 x10^3uL Lymphocytes # (Auto) 3.4 x10^3/uL Monocytes # (Auto) 0.5 x10^3/uL Eosinophils # (Auto) 0.3 x10^3/uL Basophils # (Auto) 0.0 x10^3/uL Sodium Level 144 mmol/L Potassium Level 3.9 mmol/L Chloride Level 108 mmol/L Carbon Dioxide Level 25 mmol/L Anion Gap 11 Blood Urea Nitrogen 25 mg/dL Creatinine 0.9 mg/dL Estimated GFR (Cockcroft-Gault) 59.8 BUN/Creatinine Ratio 28 Glucose Level 150 mg/dL Calcium Level 9.0 mg/dL Phosphorus Level 3.6 mg/dL Magnesium Level 2.0 mg/dL Total Bilirubin 0.3 mg/dL Aspartate Amino Transf (AST/SGOT) 15 U/L Alanine Aminotransferase (ALT/SGPT) 27 U/L Alkaline Phosphatase 50 U/L Creatine Kinase 123 U/L Creatine Kinase MB (Mass) 1.5 ng/mL Creatine Kinase MB Relative Index 1.2 % Troponin I High Sensitivity 8 ng/L [id number]-[id number]-T-Type Natriuretic Peptide 66 pg/mL Total Protein 6.8 g/dL Albumin 3.7 g/dL Albumin/Globulin Ratio 1.2 Lipase 104 U/L Current Medications Medications (Trade) Dose Ordered Sig/Tiffanie Route PRN Reason Start Time Stop Time Status Last Admin Dose Admin Iohexol (Omnipaque 350 Mg/ml) 100 ml 1X ONCE IV 06/08/21 19:00 06/08/21 19:08 DC 06/08/21 19:17 Aspirin (Christopher Aspirin) 325 mg 1X ONCE PO 06/08/21 20:45 06/08/21 20:49 DC 06/08/21 20:45 Aspirin (Aspirin Enteric Coated) 325 mg STK-MED ONCE PO 06/08/21 20:49 06/08/21 20:49 DC (DOE MODI APRN) EKG EKG EKG performed at 1755 by ED nursing staff shows a normal sinus rhythm without other ectopy, heart rate 61 bpm, [place] interval 0.164, QT 0.420, no acute STEMI, no ACS, no acute ischemia appreciated, EKG interpreted by ED attending physician Dr. Hutchison. (DOE MODI APRN) Radiology/Procedures Radiology/Procedures STATUS: REG ER ORD. PHYSICIAN: DOE MODI APRN REASON: Extremity weakness PROCEDURE: CHEST AP ONLY XR CHEST 1V History: Reason: Extremity weakness / Spl. Instructions: / History: Comparison: June 03, 2020 Findings: No consolidation or pleural effusion. Normal heart size. No pneumothorax. Impression: 1. No acute cardiopulmonary process. Electronically signed by: Madan Curran DO (06/08/2021 6:29 PM) [facility] STATUS: REG ER ORD. PHYSICIAN: DOE MODI APRN REASON: Right upper lower extremity weakness PROCEDURE: CT HEAD WO CONTRAST STUDY: CT head without contrast INDICATION: Right upper and lower extremity weakness. COMPARISON: None. TECHNIQUE: Axial CT imaging through the head without the use of intravenous contrast. Sagittal and coronal reformats were obtained. One or more of the following individualized dose reduction techniques were utilized for this examination: 1. Automated exposure control 2. Adjustment of the mA and/or kV according to patient size 3. Use of iterative reconstruction technique. FINDINGS: No acute intracranial hemorrhage. Senescent mineralization seen along both globus pallidi and faintly involving the dentate nuclei. No localized mass effect, midline shift or hydrocephalus. Odonnell-white matter differentiation is maintained. White matter findings often seen with chronic microvascular ischemic change and there may be a small right caudate head crystal report developer infarct which appears to be chronic but is not fully characterized by CT. Relatively mild carotid siphon calcific atherosclerosis. Parenchymal volume loss but not atypical for patient age. Unremarkable calvarium. Normally aerated mastoid air cells and partially imaged paranasal sinuses. IMPRESSION: No acute intracranial abnormality by CT. If there is concern for a recent ischemic event MRI would be more sensitive. Electronically signed by: YARELY GAONA MD (06/08/2021 6:04 PM) [facility] STATUS: REG ER ORD. PHYSICIAN: DOE MODI APRN REASON: Right-sided extremity weakness and numbness Omni 350 75cc PROCEDURE: CT ANGIOGRAPHY HEAD AND NECK Exam: CTA head and neck INDICATION: Right-sided extremity weakness and numbness TECHNIQUE: Sequential axial images through the head and neck obtained following the administration of 75 mL of Isovue-370 IV contrast. Sagittal and coronal reformatted images were reconstructed from the axial data and reviewed. 3-D reformatted images were reconstructed from the axial data and reviewed. Exposure: One or more of the following in the visualized dose reduction techniques were utilized for this examination: 1. Automated exposure control 2. Adjustment of the MA and/or KV according to patient size 3. Use of iterative of reconstructive technique Comparisons: CT head without contrast same day FINDINGS: CTA NECK: Visualized portions of thoracic aorta are unremarkable. Standard three-vessel arch anatomy. Right common carotid artery is patent without evidence of stenosis, occlusion or aneurysm. Cervical segment of the right internal carotid artery is patent without evidence of stenosis, occlusion or aneurysm. Left common carotid artery is patent without evidence of stenosis, occlusion or aneurysm. Cervical segment of the left internal carotid artery is patent without evidence of stenosis, occlusion or aneurysm. Right vertebral artery is patent to the basilar confluence without evidence of stenosis, occlusion or aneurysm. Vertebral artery is patent to basilar confluence without evidence of stenosis, occlusion or aneurysm. Visualized paraspinal soft tissues are unremarkable. CTA HEAD: Minimal calcified plaque cavernous segment of the right internal carotid artery without significant stenosis. Right MCA is patent. Right ZARA is patent. Minimal calcified plaque at the cavernous segment of the left internal carotid artery without significant stenosis. Left MCA is patent. Left ZARA is patent. Basilar artery is patent without evidence of stenosis, occlusion or aneurysm. vault person are patent bilaterally. Visual is portions of the dural venous sinuses are patent. IMPRESSION: 1. No large vessel occlusion. 2. Minimal calcified plaque at the cavernous segment of the internal carotid arteries bilaterally without significant stenosis. Electronically signed by: Lo Ware MD (06/08/2021 7:53 PM) [facility] (DOE MODI APRN) Heart Score C/O Chest Pain: No Risk Factors: Risk Factors: DM, Current or recent (<one month) smoker, HTN, HLP, family history of CAD, obesity. Risk Scores: Risk Factors: DM, Current or recent (<one month) smoker, HTN, HLP, family history of CAD, obesity. (DOE MODI APRN) Course & Med Decision Making Course & Med Decision Making Pertinent Labs and Imaging studies reviewed. (See chart for details) 85-year-old female, vital signs reviewed, presents to the emergency department concerning upper and lower right extremity weakness. Physical examination concerning for acute CVA. Will order CT head without contrast, CTA head and neck if no acute hemorrhage, CBC, CMP, EKG, chest x-ray, high-sensitivity troponin I, NT proBNP, urinalysis assay. NIHSS ED stroke scale equals 5. Patient has right lower limb ataxia with numbness, there is no loss of strength of the upper extremities however there is upper left extremity numbness, no facial droop, speech is normal without concerning abnormalities. Bedside swallow study performed, there is no concerning signs of aspiration. CT head without contrast negative for hemorrhagic stroke, patient CTA head and neck negative for acute large vessel occlusion, EKG unremarkable, labs are unremarkable, pending urine assay at this time. Called and discussed patient case and ED work-up with [facility] neurologist Dr. Pena who agrees patient ED case and work-up warrants admission to the hospital [facility] for neurology consult, recommended patient be admitted under inpatient management service. Recommended patient be started on 325 mg aspirin. Called and discussed patient case and ED work-up with [facility] inpatient management physician Dr. Petersen who agrees patient's case and ED work-up warrants admission to the [facility] medical surgical unit. EMTALA tr ansfer forms were completed, reviewed and signed. Patient is awaiting hospital assignment from [facility] roundhouse supervisor. [facility] roundhouse supervisor reports that is on hold at this time. Called [facility] stroke center hospitals, [facility] facilities are unable to accept transfer, [facility] are unable to accept transfer, [facility] unable to accept transfer at this time. Called transfer center for [facility], awaiting return call for acceptance. Patient remains hemodynamically stable, no changes of stroke symptoms from initial admission to the emergency department, patient is asking for Tylenol for mild headache. Will order 1 g Tylenol. Discussed patient case with [facility] transfer [employer] Fatmata Rosenberg who has accepted patient in transfer to their inpatient hospital with Dr. Patton as excepting physician. Discussed with patient transfer to [facility] for ongoing treatment of stroke, is amendable to transfer. Transfer forms reviewed completed and signed, patient awaiting transfer to [facility] at this time. (DOE MODI APRN) Course & Med Decision Making Did not see or evaluate patient. Agree with NETBACKUP ENGINEER's work-up and disposition per note. (CARLEEN HUTCHISON MD) Dragon Disclaimer Dragon Disclaimer This electronic medical record was generated, in whole or in part, using a voice recognition dictation system. (DOE MODI APRN) NIH Stroke Scale: NIH Stroke Scale Response (Comments) Value Level of Consciousness: 0 Alert/Responsive 0 LOC Questions: 0 Answers both correctly 0 LOC Commands: 0 Performs both tasks 0 Best Gaze: 0 Normal 0 Visual: 0 No visual loss 0 Facial Palsy: 0 Normal, symmetrical 0 Motor - Left Arm 0 No drift 0 Motor - Right Arm 0 No drift 0 Motor - Left Leg 0 No drift 0 Motor: Right Leg 2 Some effort 2 Limb Ataxia: 1 One limb 1 Sensory: 2 Severe to total loss 2 Best Language: 0 Normal 0 Dysathria: 0 Normal 0 Extinction and Inattention: 0 Normal 0 Total 5 Departure Departure: Impression: Primary Impression: CVA (cerebral vascular accident) Disposition: 02 SHORT TERM HOSPITAL (Patient accepted at [facility], Dr. Patton excepting physician.) Condition: GUARDED Referrals: JARROD BRODERICK MD (PCP) Problem Qualifiers Primary Impression: CVA (cerebral vascular accident) CVA mechanism: unspecified Qualified Codes: I63.9 - Cerebral infarction, unspecified DOE MODI APRN Jun 08, 2021 18:45 CARLEEN HUTCHISON MD Jun 08, 2021 23:23
[2021-06-08] MEDS ORDERED: IOHEXOL 350 MG/ML 100 ML VIAL. IV ONE (19:00)
[2021-06-08 19:04] LABS: BASO % 1 % (0-3); EOS # 0.3 x10^3/uL (0.0-0.7); EOS % 3 % (0-3); HEMATOCRIT 40.7 % (36.0-47.0); HEMOGLOBIN 13.9 g/dL (12.0-15.5); LYMPH # 3.4 x10^3/uL (1.0-4.8); LYMPH % 41 % (24-48); MEAN CORPUSCULAR HEMOGLOBIN 33 pg (25-35); MEAN CORPUSCULAR HGB CONC 34 g/dL (31-37); MEAN CORPUSCULAR VOLUME 97 fL (79-100); MONO # 0.5 x10^3/uL (0.0-1.1); MONO % 6 % (0-9); NEUT % 49 % (31-73); PLATELET COUNT 172 x10^3/uL (140-400); RED BLOOD COUNT 4.21 x10^6/uL (3.50-5.40); WHITE BLOOD COUNT 8.3 x10^3/uL (4.0-11.0)
[2021-06-08 19:11] LABS: CREATININE 0.9 mg/dL (0.6-1.0); GFR 59.8; POTASSIUM 3.9 mmol/L (3.5-5.1)
--- NOTE | 2021-06-08 19:24 | EKG ---
[address] [address] Test Date: 2021-06-08 Test Time: 17:55:13 Pat Name: KULWINDER MARTINEZ Department: Room: Gender: F Wedding Coordinator: GEOVANNA : 1935 Requested By: DOE MODI Order Number: [id number] Reading MD: Franklin Thomas Measurements Intervals [place] Rate: 61 P: 56 CA: 164 QRS: 34 QRSD: 100 T: 22 QT: 416 QTc: 420 Interpretive Statements SINUS RHYTHM NORMAL ECG Electronically Signed On 06-09-2021 12:50:13 HAM STRIPPER by Franklin Thomas
[2021-06-08 19:27] LABS: ALBUMIN 3.7 g/dL (3.4-5.0); ALBUMIN/GLOBULIN RATIO 1.2 (1.0-1.7); PHOSPHORUS 3.6 mg/dL (2.6-4.7); TOTAL BILIRUBIN 0.3 mg/dL (0.2-1.0); TOTAL PROTEIN 6.8 g/dL (6.4-8.2)
--- NOTE | 2021-06-08 19:56 | RAD ---
Exam: CTA head and neck INDICATION: Right-sided extremity weakness and numbness TECHNIQUE: Sequential axial images through the head and neck obtained following the administration of 75 mL of Isovue-370 IV contrast. Sagittal and coronal reformatted images were reconstructed from the axial data and reviewed. 3-D reformatted images were reconstructed from the axial data and reviewed. Exposure: One or more of the following in the visualized dose reduction techniques were utilized for this examination: 1. Automated exposure control 2. Adjustment of the MA and/or KV according to patient size 3. Use of iterative of reconstructive technique Comparisons: CT head without contrast same day FINDINGS: CTA NECK: Visualized portions of thoracic aorta are unremarkable. Standard three-vessel arch anatomy. Right common carotid artery is patent without evidence of stenosis, occlusion or aneurysm. Cervical s egment of the right internal carotid artery is patent without evidence of stenosis, occlusion or aneu rysm. Left common carotid artery is patent without evidence of stenosis, occlusion or aneurysm. Cervical se gment of the left internal carotid artery is patent without evidence of stenosis, occlusion or aneury sm. Right vertebral artery is patent to the basilar confluence without evidence of stenosis, occlusion or aneurysm. Vertebral artery is patent to basilar confluence without evidence of stenosis, occlusion or aneurysm. Visualized paraspinal soft tissues are unremarkable. CTA HEAD: Minimal calcified plaque cavernous segment of the right internal carotid artery without significant s tenosis. Right MCA is patent. Right ZARA is patent. Minimal calcified plaque at the cavernous segment of the left internal carotid artery without signifi cant stenosis. Left MCA is patent. Left ZARA is patent. Basilar artery is patent without evidence of stenosis, occlusion or aneurysm. sales ledger clerk are patent bilater ally. Visual is portions of the dural venous sinuses are patent. IMPRESSION: 1. No large vessel occlusion. 2. Minimal calcified plaque at the cavernous segment of the internal carotid arteries bilaterally wi thout significant stenosis. Electronically signed by: Lo Ware MD (06/08/2021 7:53 PM) [facility]
[2021-06-08] MEDS ORDERED: ASPIRIN 325 MG TABLET PO ONE (20:45)
[2021-06-08] MEDS ORDERED: ASPIRIN ENTERIC COATED 325 MG TABLET.DR. PO ONE (20:49)
[2021-06-08 20:53] VITALS: BP 134/73
[2021-06-08 22:22] LABS: BACTERIA,URINE FEW /HPF (0-FEW); BILIRUBIN,URINE NEG (NEG); CLARITY,URINE CLEAR; COLOR,URINE YELLOW; GLUCOSE,URINE NEG (NEG); NITRITE,URINE NEG (NEG); RBC,URINE 0 /HPF (0-2); SQUAMOUS EPITHELIAL CELL,UR FEW /LPF; UROBILINOGEN,URINE 0.2 mg/dL (0.2 mg/dL)
[2021-06-08 22:34] LABS: INFLUENZA A PATIENT NEGATIVE (NEGATIVE); INFLUENZA B PATIENT NEGATIVE (NEGATIVE)
[2021-06-08] MEDS ORDERED: ASA/APAP/CAFFEINE 250/250/65MG TABLET. PO ONE (23:00)
== END 2021-06-09 01:45 | disposition short-term general hospital (02) ==
LOC: ER 15:59
DX: I63.9 Cerebral infarction, unspecified (principal); K21.9 Gastro-esophageal reflux disease without esophagitis; Z20.822 Contact with and (suspected) exposure to COVID-19; Z88.0 Allergy status to penicillin; Z88.2 Allergy status to sulfonamides
CPT/HCPCS: 36415; 70450; 70496; 70498; 71045; 80053; 81001; 82553; 82947; 83690; 83735; 83880; 84100; 84484; 85025; 87086; 87186; 87428; 93005; 99285; Q9967